=== PATIENT | male | born 2005 | race Caucasian/White ===

== ENCOUNTER 2023-08-17 01:58 | Emergency (ER) | payer SELFPAY ==
[2023-08-17] MEDS ORDERED: HYDROcodone/Acetaminophen 5/325 mg Tablet ONE (02:59)
== END 2023-08-17 04:52 | disposition home or self-care (01) ==
LOC: EDBD 01:58 → CSHERS 01:58
DX: S61.311A Laceration without foreign body of left index finger with damage to nail, initial encounter (principal); F17.290 Nicotine dependence, other tobacco product, uncomplicated; W25.XXXA Contact with sharp glass, initial encounter
CPT/HCPCS: 99283